=== PATIENT | female | born 1990 | race Caucasian/White ===

== ENCOUNTER 2017-05-15 10:58 | Emergency (ER) | payer MEDICARE, OTHER ==
[2017-05-15 12:04] LABS: ADD MAN DIFF? NO
[2017-05-15 12:09] LABS: BASO % 0 % (0-3); EOS # 0.1 x10^3/uL (0.0-0.7); EOS % 1 % (0-3); HEMATOCRIT 37.6 % (36.0-47.0); HEMOGLOBIN 12.5 g/dL (12.0-15.5); LYMPH # 2.3 x10^3/uL (1.0-4.8); LYMPH % 21 % (24-48); MEAN CORPUSCULAR HEMOGLOBIN 30 pg (25-35); MEAN CORPUSCULAR HGB CONC 33 g/dL (31-37); MEAN CORPUSCULAR VOLUME 90 fL (79-100); MONO % 9 % (0-9); NEUT # 7.4 x10^3uL (1.8-7.7); NEUT % 69 % (31-73); PLATELET COUNT 264 x10^3/uL (140-400); RED BLOOD COUNT 4.17 x10^6/uL (3.50-5.40); RED CELL DISTRIBUTION WIDTH 14.1 % (11.5-14.5); WHITE BLOOD COUNT 10.7 x10^3/uL (4.0-11.0)
[2017-05-15 12:14] LABS: ANION GAP 5 (6-14); BLOOD UREA NITROGEN 14 mg/dL (7-20); BUN/CREATININE RATIO 20 (6-20); CALCIUM 8.8 mg/dL (8.5-10.1); CARBON DIOXIDE 33 mmol/L (21-32); CHLORIDE 105 mmol/L (98-107); CREATININE 0.7 mg/dL (0.6-1.0); GFR 101.1; GLUCOSE 91 mg/dL (70-99); POTASSIUM 3.7 mmol/L (3.5-5.1); SODIUM 143 mmol/L (136-145)
[2017-05-15 12:19] LABS: ALBUMIN 3.3 g/dL (3.4-5.0); ALBUMIN/GLOBULIN RATIO 0.8 (1.0-1.7); ALK PHOS 90 U/L (46-116); ALT (SGPT) 18 U/L (14-59); AST (SGOT) 14 U/L (15-37); TOTAL BILIRUBIN 0.5 mg/dL (0.2-1.0); TOTAL PROTEIN 7.5 g/dL (6.4-8.2)
[2017-05-15] MEDS ORDERED: CONTRAST GIVEN MC (12:30)
[2017-05-15] MEDS: IOHEXOL 300 MG/ML 100ML VIAL. IV (12:51)
[2017-05-15] MEDS: HYDROcodone/APAP 5/325MG 1 TAB TABLET PO (13:09)
[2017-05-15] MEDS: DIPHTH,PERTUSS(ACELL),TET TOX 0.5 ML DISP.SYRIN. VAX IM (13:41)
[2017-05-15 14:54] LABS: URINE HCG POC HCG NEGATIVE (Negative)
== END 2017-05-15 13:43 | disposition home or self-care (01) ==
LOC: ER 10:58
DX: K12.2 Cellulitis and abscess of mouth (principal)
CPT/HCPCS: 36415; 70491; 80053; 81025; 85025; 90471; 90715; 99285-25; Q9967

== ENCOUNTER 2018-10-31 10:11 | Emergency (ER) | payer OTHER, MEDICAID ==
[~2018-10-31] VITALS: Ht 170.2 cm; Wt 115.7 kg
[2018-10-31] MEDS ORDERED: IV NORMAL SALINE 1000ML BAG 1,000 ML IV ONE (10:30)
[2018-10-31] MEDS ORDERED: ONDANSETRON PF 4 MG/2 ML VIAL. IV ONE (10:30)
--- NOTE | 2018-10-31 10:39 | PHYS DOC ---
Past Medical History Past Medical History: No Pertinent History Past Surgical History: No Surgical History Alcohol Use: None Drug Use: None Adult General Chief Complaint Chief Complaint: NAUSEA/VOMITING/DIARRHA HPI HPI Patient is a 28 year old female that presents with nausea and vomiting since October 17. The patient states that she's been having issues keeping food down. The patient states that she has not had a period for at least 2 months. The patient thinks that her last period was the beginning of August. The patient is a poor historian. Denies any pain at this time. No interventions prior to arrival. The patient states she was using some kind of unknown control patch. The patient states she did know how to use it and so she stopped using it. [id number] Review of Systems Review of Systems Constitutional: Denies fever or chills [] Eyes: Denies change in visual acuity, redness, or eye pain [] HENT: Reports nasal congestion denies sore throat [] Respiratory: Reports cough denies shortness of breath [] Cardiovascular: No additional information not addressed in HPI [] GI: Reports intermittent abdominal cramping, reports nausea, vomiting, Denies bloody stools or diarrhea [] : Denies dysuria or hematuria [] Musculoskeletal: Denies back pain or joint pain [] Integument: Denies rash or skin lesions [] Neurologic: Denies headache, focal weakness or sensory changes [] Endocrine: Denies polyuria or polydipsia [] Complete systems were reviewed and found to be within normal limits, except as documented in this note. Current Medications Current Medications Current Medications Medications (Trade) Dose Ordered [facility] Start Time Stop Time Status Last Admin Dose Admin Ondansetron HCl (Zofran) 4 mg 1X ONCE 10/31/18 10:30 10/31/18 10:34 DC 10/31/18 10:59 4 MG Sodium Chloride 1,000 ml @ 1,000 mls/hr 1X ONCE 10/31/18 10:30 10/31/18 11:29 DC 10/31/18 10:59 1,000 MLS/HR Allergies Allergies Allergies Coded Allergies Type Severity Reaction Last Updated Verified No Known Drug Allergies 07/19/13 No Physical Exam Physical Exam Constitutional: Well developed, well nourished, no acute distress, non-toxic appearance. [] HENT: Normocephalic, atraumatic, bilateral external ears normal, oropharynx moist, no oral exudates, nose normal. [] Eyes: PERRLA, EOMI, conjunctiva normal, no discharge. [] Neck: Normal range of motion, no tenderness, supple, no stridor. [] Cardiovascular:Heart rate regular rhythm, no murmur [] Lungs & Thorax: Bilateral breath sounds clear to auscultation [] Abdomen: Bowel sounds normal, soft, no tenderness, no masses, no pulsatile masses. [] Skin: Warm, dry, no erythema, no rash. [] Back: No tenderness, no CVA tenderness. [] Extremities: No tenderness, no cyanosis, no clubbing, ROM intact, no edema. [] Neurologic: Alert and oriented X 3, normal motor function, normal sensory function, no focal deficits noted. [] Psychologic: Affect normal, judgement normal, mood normal. [] Current Patient Data Vital Signs Vital Signs Date Time Temp Pulse Resp B/P (MAP) Pulse Ox O2 Delivery O2 Flow Rate FiO2 10/31/18 10:15 98.2 80 16 135/71 (92) 97 Room Air 98.2 Lab Values Laboratory Tests Test 10/31/18 10:18 10/31/18 10:29 10/31/18 10:45 Urine Collection Type Unknown Urine Color Elina Urine Clarity Cloudy Urine pH 6.0 Urine Specific [place] 1.025 Urine Protein >=300 mg/dL (NEG-TRACE) Urine Glucose (UA) Negative mg/dL (NEG) Urine Ketones (Stick) Trace mg/dL (NEG) Urine Blood Negative (NEG) Urine Nitrite Negative (NEG) Urine Bilirubin Small (NEG) Urine Urobilinogen Dipstick 0.2 mg/dL (0.2 mg/dL) Urine Leukocyte Esterase Small (NEG) Urine RBC 0 /HPF (0-2) Urine WBC 5-10 /HPF (0-4) Urine Squamous Epithelial Cells Many /LPF Urine Amorphous Sediment Present /HPF Urine Bacteria Few /HPF (0-FEW) POC Urine HCG, Qualitative Hcg positive (Negative) White Blood Count 6.8 x10^3/uL (4.0-11.0) Red Blood Count 4.69 x10^6/uL (3.50-5.40) Hemoglobin 13.5 g/dL (12.0-15.5) Hematocrit 41.1 % (36.0-47.0) Mean Corpuscular Volume 88 fL (79-100) Mean Corpuscular Hemoglobin 29 pg (25-35) Mean Corpuscular Hemoglobin Concent 33 g/dL (31-37) Red Cell Distribution Width 14.8 % (11.5-14.5) H Platelet Count 217 x10^3/uL (140-400) Neutrophils (%) (Auto) 74 % (31-73) H Lymphocytes (%) (Auto) 17 % (24-48) L Monocytes (%) (Auto) 8 % (0-9) Eosinophils (%) (Auto) 1 % (0-3) Basophils (%) (Auto) 0 % (0-3) Neutrophils # (Auto) 5.0 x10^3/uL (1.8-7.7) Lymphocytes # (Auto) 1.2 x10^3/uL (1.0-4.8) Monocytes # (Auto) 0.5 x10^3/uL (0.0-1.1) Eosinophils # (Auto) 0.0 x10^3/uL (0.0-0.7) Basophils # (Auto) 0.0 x10^3/uL (0.0-0.2) Maternal Serum HCG Beta Subunit 347412 mIU/mL (0-5) H Sodium Level 139 mmol/L (136-145) Potassium Level 3.7 mmol/L (3.5-5.1) Chloride Level 104 mmol/L (98-107) Carbon Dioxide Level 25 mmol/L (21-32) Anion Gap 10 (6-14) Blood Urea Nitrogen 6 mg/dL (7-20) L Creatinine 0.6 mg/dL (0.6-1.0) Estimated GFR (Cockcroft-Gault) 119.9 BUN/Creatinine Ratio 10 (6-20) Glucose Level 86 mg/dL (70-99) Calcium Level 8.8 mg/dL (8.5-10.1) Total Bilirubin 0.7 mg/dL (0.2-1.0) Aspartate Amino Transferase (AST) 18 U/L (15-37) Alanine Aminotransferase (ALT) 28 U/L (14-59) Alkaline Phosphatase 81 U/L (46-116) Total Protein 7.0 g/dL (6.4-8.2) Albumin 3.4 g/dL (3.4-5.0) Albumin/Globulin Ratio 0.9 (1.0-1.7) L Laboratory Tests 10/31/18 10:45 Laboratory Tests 10/31/18 10:45 EKG EKG [] Radiology/Procedures Radiology/Procedures []PATIENT: HALEY WEINSTEIN MACCOUNT: [id number]#: [id number] : 1990 LOCATION: ER AGE: 28 SEX: F EXAM STATUS: REG ER ORD. PHYSICIAN: HAN HENRY APRN REASON: abd cramping, nausea PROCEDURE: OB < 14 WKS First trimester ultrasound less than 14 weeks: Clinical indications: . Abdominal cramping. Nausea. Findings: Transabdominal study: Number of fetuses: Single. Average crown-rump length: 2.78 cm which corresponds to an approximate gestational age of 9 weeks and 4 days +/- 6 days. EDC is June 01, 2019 Sac shape and amniotic fluid volume: Normal. heart rate: 168 beats per minute Placenta location: Indeterminate due to the early stage of gestation. Cervical length: 3.6 cm. Extrachorionic hemorrhage: None. Uterus: No uterine fibroids are seen. Maternal ovaries: Right ovary: 4.1 cm x 2.0 cm x 2.6 cm. Normal. Left ovary: 4.0 cm x 1.9 cm x 3.0 cm. Normal. Adnexa: no adnexal masses are seen. Free fluid: None. Impression: Single intrauterine gestation with approximate gestational age of 9 weeks and 4 days with an EDC of June 01, 2019. heart rate is 168 beats per minute. Electronically signed by: Parag Oakley MD (10/31/2018 11:42 AM) [facility] DICTATED and SIGNED BY: PARAG OAKLEY MD DATE: 10/31/18 114 Course & Med Decision Making Course & Med Decision Making Pertinent Labs and Imaging studies reviewed. (See chart for details) Will obtain UA, test,labs, and get an ultrasound. Will also give supportive care. test is positive. Labs are unremarkable with the exception of urine. Urine shows small leukocytes and protein >300. BP is 135/71. Will have follow up with OB. Will place on Keflex. Ultrasound is unremarkable though it has an estimated age of 9 weeks 4 days. Dragon Disclaimer Dragon Disclaimer This electronic medical record was generated, in whole or in part, using a voice recognition dictation system. Departure Departure Impression: Primary Impression: Nausea and vomiting during Additional Impression: Urinary tract infection affecting Disposition: HOME, SELF-CARE Condition: STABLE Referrals: HAN BUNCH MD (PCP) ADALID GARCIA Jr, MD Patient Instructions: Nausea and Vomiting Additional Instructions: Thank you for visiting [facility]. We appreciate you trusting us with your care. If any additional problems come up don't hesitate to return to visit us. Please follow up with your primary care provider so they can plan additional care if needed and know about the problem that you had. If symptoms worsen come back to the Emergency Department. Any concerning symptoms that start such as chest pain, shortness of air, weakness or numbness on one side of the body, running high fevers or any other concerning symptoms return to the ER. Please follow up with OB for OB care. You have been prescribed an antibiotic today to help fight your infection. Please take all of the antibiotic as directed. If after 48 hours the infection is not improving, please return for more care. If the infection worsens, return to ER for additional care. Please fill your medications at any pharmacy and follow the prescription instructions. Scripts Cephalexin (KEFLEX) 500 Mg Capsule 1 CAP PO BID for 7 Days, #14 CAP Prov: HAN HENRY APRN 10/31/18 Ondansetron (ONDANSETRON ODT) 4 Mg Tab.rapdis 1 TAB PO PRN Q6-8HRS PRN for NAUSEA, #16 TAB Prov: HAN HENRY APRN 10/31/18 Problem Qualifiers HAN HENRY APRN Oct 31, 2018 10:39
[2018-10-31 10:52] LABS: BILIRUBIN,URINE SMALL (NEG); CLARITY,URINE CLOUDY; COLOR,URINE AMBER; NITRITE,URINE NEGATIVE (NEG); PROTEIN,URINE >=300 mg/dL (NEG-TRACE); UROBILINOGEN,URINE 0.2 mg/dL (0.2 mg/dL)
[2018-10-31 11:06] LABS: BASO % 0 % (0-3); EOS % 1 % (0-3); HEMATOCRIT 41.1 % (36.0-47.0); HEMOGLOBIN 13.5 g/dL (12.0-15.5); LYMPH # 1.2 x10^3/uL (1.0-4.8); LYMPH % 17 % (24-48); MEAN CORPUSCULAR HEMOGLOBIN 29 pg (25-35); MEAN CORPUSCULAR HGB CONC 33 g/dL (31-37); MEAN CORPUSCULAR VOLUME 88 fL (79-100); MONO # 0.5 x10^3/uL (0.0-1.1); MONO % 8 % (0-9); NEUT % 74 % (31-73); PLATELET COUNT 217 x10^3/uL (140-400); RED BLOOD COUNT 4.69 x10^6/uL (3.50-5.40); RED CELL DISTRIBUTION WIDTH 14.8 % (11.5-14.5); WHITE BLOOD COUNT 6.8 x10^3/uL (4.0-11.0)
[2018-10-31 11:14] LABS: BACTERIA,URINE FEW /HPF (0-FEW); RBC,URINE 0 /HPF (0-2); SQUAMOUS EPITHELIAL CELL,UR MANY /LPF
[2018-10-31 11:15] LABS: AMORPHOUS SEDIMENT,UR PRESENT /HPF
[2018-10-31 11:16] LABS: CALCIUM 8.8 mg/dL (8.5-10.1); CREATININE 0.6 mg/dL (0.6-1.0); GFR 119.9; POTASSIUM 3.7 mmol/L (3.5-5.1)
[2018-10-31 11:23] LABS: ALBUMIN 3.4 g/dL (3.4-5.0); ALBUMIN/GLOBULIN RATIO 0.9 (1.0-1.7); TOTAL BILIRUBIN 0.7 mg/dL (0.2-1.0)
--- NOTE | 2018-10-31 11:44 | RAD ---
First trimester ultrasound less than 14 weeks: Clinical indications: . Abdominal cramping. Nausea. Findings: Transabdominal study: Number of fetuses: Single. Average crown-rump length: 2.78 cm which corresponds to an approximate gestational age of 9 weeks and 4 days +/- 6 days. EDC is June 01, 2019 Sac shape and amniotic fluid volume: Normal. heart rate: 168 beats per minute Placenta location: Indeterminate due to the early stage of gestation. Cervical length: 3.6 cm. Extrachorionic hemorrhage: None. Uterus: No uterine fibroids are seen. Maternal ovaries: Right ovary: 4.1 cm x 2.0 cm x 2.6 cm. Normal. Left ovary: 4.0 cm x 1.9 cm x 3.0 cm. Normal. Adnexa: no adnexal masses are seen. Free fluid: None. Impression: Single intrauterine gestation with approximate gestational age of 9 weeks and 4 days with an EDC of June 01, 2019. heart rate is 168 beats per minute. Electronically signed by: Art Oakley MD (10/31/2018 11:42 AM) [facility]
[2018-10-31] MEDS ORDERED: ONDA4TAB12 PO (11:53)
[2018-10-31] MEDS ORDERED: CEPH-264 PO (11:53)
[2018-10-31 12:01] VITALS: BP 124/65
== END 2018-10-31 12:17 | disposition home or self-care (01) ==
LOC: ER 10:11
DX: O21.8 Other vomiting complicating pregnancy (principal); O23.41 Unspecified infection of urinary tract in pregnancy, first trimester; Z3A.09 9 weeks gestation of pregnancy
CPT/HCPCS: 36415; 76801; 80053; 81001; 81025; 84702; 85025; 86900; 86901; 87086; 96361; 96374; 99285; J2405; J7030

== ENCOUNTER 2019-05-26 18:18 | Inpatient (IN) | payer OTHER, MEDICAID ==
[~2019-05-26] VITALS: Ht 170.2 cm; Wt 124.3 kg
[~2019-05-26 18:18] MED LIST: CEPH-264 PO; ONDA4TAB12 PO
[2019-05-26] MEDS ORDERED: LIDOCAINE 1% PF 30 ML VIAL. INJ PRN (18:30)
[2019-05-26] MEDS ORDERED: DINOPROSTONE 10 MG SUPP.VAG VG ONE (18:30)
[2019-05-26] MEDS ORDERED: ONDANSETRON PF 4 MG/2 ML VIAL. IV PRN (18:30)
[2019-05-26] MEDS ORDERED: TERBUTALINE 1 MG/ML VIAL. SQ PRN (18:30)
[2019-05-26] MEDS ORDERED: 0.9 % SODIUM CHLORIDE 10 ML DISP.SYRIN. IV PRN (18:30)
[2019-05-26] MEDS ORDERED: BUTORPHANOL 2 MG/ML VIAL. IV PRN ×2 (18:30)
[2019-05-26] MEDS ORDERED: fentaNYL PF VIAL 100 MCG/2 ML VIAL IV PRN (18:30)
[2019-05-26] MEDS ORDERED: ZOLPIDEM 5 MG TABLET. PO PRN (18:30)
[2019-05-26] MEDS ORDERED: OXYTOCIN 30 UNIT/500 ML PREMIX 500 ML IV PRN ×2 (18:30)
[2019-05-26 18:53] VITALS: BP 143/86
[2019-05-26 18:53] LABS: BILIRUBIN,URINE NEGATIVE (NEG); CLARITY,URINE CLEAR; COLOR,URINE YELLOW; NITRITE,URINE NEGATIVE (NEG); PROTEIN,URINE NEGATIVE (NEG-TRACE)
[2019-05-26] MEDS ORDERED: PNV1TABL25 PO (18:54)
[2019-05-26] MEDS: IV RINGERS,LACTATED 1000ML 1,000 ML IV SCH ×3 (18:56→22:55)
[2019-05-26] MEDS ORDERED: AMPICILLIN SODIUM 2 GM in IV NORMAL SALINE 100ML 100 ML IV ONE (19:00)
[2019-05-26 19:02] LABS: BACTERIA,URINE 0 /HPF (0-FEW); RBC,URINE 0 /HPF (0-2); SQUAMOUS EPITHELIAL CELL,UR MOD /LPF; WBC,URINE OCC /HPF (0-4)
[2019-05-26 19:12] LABS: BASO % 0 % (0-3); EOS # 0.1 x10^3/uL (0.0-0.7); EOS % 1 % (0-3); HEMATOCRIT 38.3 % (36.0-47.0); HEMOGLOBIN 12.9 g/dL (12.0-15.5); LYMPH # 1.8 x10^3/uL (1.0-4.8); LYMPH % 21 % (24-48); MEAN CORPUSCULAR HEMOGLOBIN 31 pg (25-35); MEAN CORPUSCULAR HGB CONC 34 g/dL (31-37); MEAN CORPUSCULAR VOLUME 91 fL (79-100); MONO # 0.5 x10^3/uL (0.0-1.1); MONO % 6 % (0-9); NEUT # 6.4 x10^3/uL (1.8-7.7); NEUT % 72 % (31-73); PLATELET COUNT 195 x10^3/uL (140-400); RED BLOOD COUNT 4.21 x10^6/uL (3.50-5.40); RED CELL DISTRIBUTION WIDTH 14.4 % (11.5-14.5); WHITE BLOOD COUNT 8.8 x10^3/uL (4.0-11.0)
[2019-05-26] MEDS: AMPICILLIN SODIUM 1 GM in IV NORMAL SALINE 50ML 50 ML IV SCH (23:55)
[2019-05-27] MEDS: AMPICILLIN SODIUM 1 GM in IV NORMAL SALINE 50ML 50 ML IV SCH ×7 (03:30→16:30)
[2019-05-27] MEDS: IV RINGERS,LACTATED 1000ML 1,000 ML IV SCH (07:50)
[2019-05-27] MEDS ORDERED: TDaP (Adacel) per PROTOCOL. MC PRN (13:00)
[2019-05-27] MEDS ORDERED: MAGNESIUM HYDROXIDE 2,400 MG/30 ML ORAL.SUSP. PO PRN (13:00)
[2019-05-27] MEDS ORDERED: PHENYLEPH/MINERAL OIL/PETROLAT RECTAL OINTMENT TUBE. RC PRN (13:00)
[2019-05-27] MEDS ORDERED: ZOLPIDEM 5 MG TABLET. PO PRN (13:00)
[2019-05-27] MEDS ORDERED: MMR per PROTOCOL. MC PRN (13:00)
[2019-05-27] MEDS ORDERED: SIMETHICONE 80 MG TAB.CHEW PO PRN (13:00)
[2019-05-27] MEDS ORDERED: BENZOCAINE 20% TOPICAL AEROSOL SPRAY 57GM CAN. TP PRN (13:00)
[2019-05-27] MEDS ORDERED: HYDROCORTISONE 1% TOPICAL OINTMENT 30GM TUBE. TP PRN (13:00)
[2019-05-27] MEDS ORDERED: ACETAMINOPHEN 325 MG TABLET. PO PRN (13:00)
[2019-05-27] MEDS ORDERED: HYDROcodone/APAP 5/325MG 1 TAB TABLET PO PRN ×2 (13:00)
[2019-05-27] MEDS ORDERED: MAG HYDROX/ALUMINUM HYD/SIMETH 30 ML ORAL.SUSP PO PRN (13:00)
[2019-05-27] MEDS ORDERED: 0.9 % SODIUM CHLORIDE 10 ML DISP.SYRIN. IV PRN (13:00)
[2019-05-27] MEDS ORDERED: OXYTOCIN 30 UNIT/500 ML PREMIX 500 ML IV PRN (13:00)
[2019-05-27] MEDS ORDERED: diphenhydrAMINE HCL 25 MG CAPSULE PO PRN (13:00)
--- NOTE | 2019-05-27 13:00 | PDOC1 ---
OB - History Hx of Present Ultrasounds: Normal mid trimester US Obstetrical Complications: Other (GBS +) Medical Complications: Other (MR mild) Past Family/Social History * Past Medical, Surgical, Family and Obstetric Histories reviewed from chart. Blood Type: O+ Rubella: Immune RPR/VDRL: Negative GBS Status: Positive HBsAG: Negative OB - Chief Complaint & HPI Date of Admission: Date of Admission: May 26, 2019 at 18:18 Chief Complaint/History : 4 Para: 3 Reason for admission: induction of labor Indication for induction: other (Rapid deliveries) Admission Nurse Assessment Rev: Yes OB - Admission Exam Physical Exam Vitals: VS - Last 72 Hours, by Label Date Time Temp Pulse Resp B/P (MAP) Pulse Ox O2 Delivery O2 Flow Rate FiO2 05/27/19 10:29 16 05/26/19 18:53 98.0 83 20 143/86 (105) Room Air 98.0 HEENT: Normal, Nasal Mucosa Normal, Oropharynx Normal, Moist Membranes, Fontanelles Normal Lungs: Clear, Equal Abdomen: Gravid Extremities: Normal Pulses, No tenderness or swelling Reflexes: Normal Cervical Dilatation: 2cm Effacement: 50% Station: -3 Membranes: Intact Amniotic Fluid: Clear Heart Rate: Normal Accelerations: Accelerations Present Decelerations: No decelerations Short Term Variability: Present Half-Way Variability: Moderate Contractions on Admission: 6-10 Minutes Apart Intensity: HAN Fitch MD May 27, 2019 13:00
--- NOTE | 2019-05-27 13:20 | OP ---
DATE OF SURGERY: 05/27/2019 DELIVERY NOTE CLINICAL COURSE: This patient is a G4, P3 female with risk of GBS positive status, otherwise with minimal risk except for mild mental handicap in mother. She was scheduled for induction due to rapid labors with EDC of 05/29/2019 making her 39 and 5. She underwent Cervidil placement for induction, but had hyperstim reaction and this was discontinued immediately. Deceleration was noted early in labor course, but this resolved completely and the patient had reassuring strip after Cervidil was removed and contraction pattern became more normal. She had a light contraction pattern to the evening and then proceeded into labor, had artificial rupture of membranes with clear fluid noted dilating cervix to approximately 5 cm. She had minimal progression and Pitocin augmentation was added and the patient progressed rapidly to complete, delivering a viable male with Apgars of 8, 9 and 9 over a midline laceration and a right periurethral laceration. head was delivered and suctioned and subsequently the body was delivered. was re-suctioned, had spontaneous cry and no gross abnormalities were noted. Cord was clamped after 30-second placental resuscitation and was handed off. Placenta was delivered with 3-vessel cord noted and was delivered intact. Uterus was firm with Pitocin and palpation. There was good hemostasis. A midline first-degree laceration was sutured with 3-0 chromic with a running locking fashion and right-sided periurethral was sutured in a running fashion. Perineum was intact. Cervix was inspected and vaginal vault was inspected without lacerations or bleeding. There was approximately 300 mL blood loss. There was no anesthesia at this delivery. Mother did receive Stadol approximately 2 hours prior to delivery. Mother and baby to recovery in stable condition. HAN BUNCH MD DR: LORETTA/edgar JOB#: [id number] / [id number]
[2019-05-27] MEDS ORDERED: IBUPROFEN 400 MG TABLET. PO SCH (14:00)
[2019-05-27 15:30] VITALS: BP 124/76
[2019-05-27] MEDS: IBUPROFEN 400 MG TABLET. PO PRN (15:33)
[2019-05-27 16:35] VITALS: BP 120/75
[2019-05-27 20:17] VITALS: BP 129/79
[2019-05-27 23:45] VITALS: BP 123/70
[2019-05-28] MEDS: IBUPROFEN 400 MG TABLET. PO PRN ×3 (01:03→18:53)
[2019-05-28 05:34] VITALS: BP 120/80
[2019-05-28 06:29] LABS: BASO % 0 % (0-3); EOS # 0.1 x10^3/uL (0.0-0.7); EOS % 1 % (0-3); HEMOGLOBIN 11.8 g/dL (12.0-15.5); LYMPH # 2.4 x10^3/uL (1.0-4.8); LYMPH % 24 % (24-48); MEAN CORPUSCULAR HEMOGLOBIN 31 pg (25-35); MEAN CORPUSCULAR HGB CONC 34 g/dL (31-37); MEAN CORPUSCULAR VOLUME 90 fL (79-100); MONO # 0.7 x10^3/uL (0.0-1.1); MONO % 7 % (0-9); NEUT # 6.8 x10^3/uL (1.8-7.7); NEUT % 68 % (31-73); PLATELET COUNT 159 x10^3/uL (140-400); RED BLOOD COUNT 3.87 x10^6/uL (3.50-5.40); RED CELL DISTRIBUTION WIDTH 14.6 % (11.5-14.5)
[2019-05-28] MEDS ORDERED: FERROUS SULFATE 325 MG TABLET. PO SCH (08:00)
[2019-05-28] MEDS: MULTIVITAMIN with MINERAL TABLET. PO SCH (08:35)
[2019-05-28 10:20] VITALS: BP 126/85
--- NOTE | 2019-05-28 12:47 | PDOC ---
PROGRESS NOTES Subjective Subjective Doing well decreased bleeding and loci tolerating diet and ambulating good pain control. Objective Objective Vital Signs Date Time Temp Pulse Resp B/P (MAP) Pulse Ox O2 Delivery O2 Flow Rate FiO2 05/28/19 10:20 97.8 76 17 126/85 (99) 96 Room Air 97.8 Intake and Output 05/28/19 07:00 Intake Total 720 ml Balance 720 ml Intake Oral 720 ml # Voids 3 Physical Exam Abdomen: Normal bowel sounds Heart: Regular rate Extremities: No edema General: Alert Lungs: Clear to auscultation MUSCULOSKELETAL: Other (neg estefania sign) Assessment Assessment PPD#1 Plan Plan of Care Routine care Comment Review of Relevant I have reviewed the following items ace (where applicable) has been applied. Labs Laboratory Tests Test 05/26/19 18:39 05/26/19 18:54 05/28/19 06:08 Urine Collection Type Unknown Urine Color Yellow Urine Clarity Clear Urine pH 6.0 (<5.0-8.0) Urine Specific [place] 1.025 (1.000-1.030) Urine Protein Negative mg/dL (NEG-TRACE) Urine Glucose (UA) Negative mg/dL (NEG) Urine Ketones (Stick) Negative mg/dL (NEG) Urine Blood Negative (NEG) Urine Nitrite Negative (NEG) Urine Bilirubin Negative (NEG) Urine Urobilinogen Dipstick 1.0 mg/dL (0.2 mg/dL) Urine Leukocyte Esterase Negative (NEG) Urine RBC 0 /HPF (0-2) Urine WBC Occ /HPF (0-4) Urine Squamous Epithelial Cells Mod /LPF Urine Bacteria 0 /HPF (0-FEW) Urine Mucus Mod /LPF White Blood Count 8.8 x10^3/uL (4.0-11.0) 10.0 x10^3/uL (4.0-11.0) Red Blood Count 4.21 x10^6/uL (3.50-5.40) 3.87 x10^6/uL (3.50-5.40) Hemoglobin 12.9 g/dL (12.0-15.5) 11.8 g/dL (12.0-15.5) Hematocrit 38.3 % (36.0-47.0) 35.0 % (36.0-47.0) Mean Corpuscular Volume 91 fL (79-100) 90 fL (79-100) Mean Corpuscular Hemoglobin 31 pg (25-35) 31 pg (25-35) Mean Corpuscular Hemoglobin Concent 34 g/dL (31-37) 34 g/dL (31-37) Red Cell Distribution Width 14.4 % (11.5-14.5) 14.6 % (11.5-14.5) Platelet Count 195 x10^3/uL (140-400) 159 x10^3/uL (140-400) Neutrophils (%) (Auto) 72 % (31-73) 68 % (31-73) Lymphocytes (%) (Auto) 21 % (24-48) 24 % (24-48) Monocytes (%) (Auto) 6 % (0-9) 7 % (0-9) Eosinophils (%) (Auto) 1 % (0-3) 1 % (0-3) Basophils (%) (Auto) 0 % (0-3) 0 % (0-3) Neutrophils # (Auto) 6.4 x10^3/uL (1.8-7.7) 6.8 x10^3/uL (1.8-7.7) Lymphocytes # (Auto) 1.8 x10^3/uL (1.0-4.8) 2.4 x10^3/uL (1.0-4.8) Monocytes # (Auto) 0.5 x10^3/uL (0.0-1.1) 0.7 x10^3/uL (0.0-1.1) Eosinophils # (Auto) 0.1 x10^3/uL (0.0-0.7) 0.1 x10^3/uL (0.0-0.7) Basophils # (Auto) 0.0 x10^3/uL (0.0-0.2) 0.0 x10^3/uL (0.0-0.2) Treponema pallidum Antibody Nonreactive (Nonreactive) Laboratory Tests Test 05/28/19 06:08 White Blood Count 10.0 x10^3/uL (4.0-11.0) Red Blood Count 3.87 x10^6/uL (3.50-5.40) Hemoglobin 11.8 g/dL (12.0-15.5) Hematocrit 35.0 % (36.0-47.0) Mean Corpuscular Volume 90 fL (79-100) Mean Corpuscular Hemoglobin 31 pg (25-35) Mean Corpuscular Hemoglobin Concent 34 g/dL (31-37) Red Cell Distribution Width 14.6 % (11.5-14.5) Platelet Count 159 x10^3/uL (140-400) Neutrophils (%) (Auto) 68 % (31-73) Lymphocytes (%) (Auto) 24 % (24-48) Monocytes (%) (Auto) 7 % (0-9) Eosinophils (%) (Auto) 1 % (0-3) Basophils (%) (Auto) 0 % (0-3) Neutrophils # (Auto) 6.8 x10^3/uL (1.8-7.7) Lymphocytes # (Auto) 2.4 x10^3/uL (1.0-4.8) Monocytes # (Auto) 0.7 x10^3/uL (0.0-1.1) Eosinophils # (Auto) 0.1 x10^3/uL (0.0-0.7) Basophils # (Auto) 0.0 x10^3/uL (0.0-0.2) Medications Current Medications Sodium Chloride (Normal Saline Flush) 3 ml QSHIFT PRN IV AFTER MEDS AND BLOOD DRAWS; Start 05/26/19 at 18:30; Stop 05/28/19 at 05:41; Status DC Ringer's Solution 1,000 ml @ 125 mls/hr Q8H IV Last administered on 05/27/19at 07:50; Start 05/26/19 at 18:22; Stop 05/28/19 at 05:41; Status DC Butorphanol Tartrate (Stadol) 1 mg PRN Q1HR PRN IV mild to moderate labor pain; Start 05/26/19 at 18:30; Stop 05/28/19 at 05:41; Status DC Butorphanol Tartrate (Stadol) 2 mg PRN Q1HR PRN IV Severe labor pain Last administered on 05/27/19at 10:29; Start 05/26/19 at 18:30; Stop 05/28/19 at 05:41; Status DC Fentanyl Citrate (Fentanyl 2ml Vial) 100 mcg PRN Q30MIN PRN IV Severe pain; Start 05/26/19 at 18:30; Stop 05/28/19 at 05:41; Status DC Ondansetron HCl (Zofran) 4 mg PRN Q4HRS PRN IV NAUSEA/VOMITING; Start 05/26/19 at 18:30; Stop 05/28/19 at 05:41; Status DC Zolpidem Tartrate (Ambien) 5 mg PRN QHS PRN PO INSOMNIA; Start 05/26/19 at 18:30; Status Cancel Terbutaline Sulfate (Brethine) 0.25 mg 1X PRN PRN SQ SEE COMMENTS; Start 05/26/19 at 18:30; Stop 05/27/19 at 18:29; Status DC Lidocaine HCl (Xylocaine 1% Pf 30ml Vial) 30 ml 1X PRN PRN INJ SEE COMMENTS Last administered on 05/27/19at 12:39; Start 05/26/19 at 18:30; Stop 05/28/19 at 05:41; Status DC Ampicillin Sodium 2 gm/Sodium Chloride 100 ml @ 200 mls/hr 1X ONCE IV Last administered on 05/26/19at 19:27; Start 05/26/19 at 19:00; Stop 05/26/19 at 19:29; Status DC Ampicillin Sodium 1 gm/Sodium Chloride 50 ml @ 100 mls/hr Q4H IV Last administered on 05/27/19at 11:38; Start 05/26/19 at 12:30; Stop 05/28/19 at 05:41; Status DC Oxytocin/Sodium Chloride 500 ml @ 0 mls/hr CONT PRN IV SEE I/O RECORD Last administered on 05/27/19at 11:20; Start 05/26/19 at 18:30; Stop 05/28/19 at 05:41; Status DC Oxytocin/Sodium Chloride 500 ml @ 0 mls/hr CONT PRN PRN IV Post delivery bleeding; Start 05/26/19 at 18:30 Ibuprofen (Motrin) 800 mg PRN Q6HRS PRN PO INFLAMMATION Last administered on 02/05at 08:36; Start 05/26/19 at 18:30 Dinoprostone (Cervidil) 10 mg 1X ONCE VG Last administered on 05/26/19at 19:27; Start 05/26/19 at 18:30; Stop 05/26/19 at 18:42; Status DC Sodium Chloride (Normal Saline Flush) 10 ml QSHIFT PRN IV AFTER MEDS AND BLOOD DRAWS; Start 05/27/19 at 13:00; Stop 05/28/19 at 05:41; Status DC Oxytocin/Sodium Chloride 500 ml @ 62.5 mls/hr CONT PRN IV SEE I/O RECORD; Start 05/27/19 at 13:00; Stop 05/27/19 at 20:59; Status DC Acetaminophen (Tylenol) 650 mg PRN Q6HRS PRN PO MILD PAIN / TEMP; Start 05/27/19 at 13:00 Ibuprofen (Motrin) 800 mg Q8HRS PO ; Start 05/27/19 at 14:00 Magnesium Hydroxide (Milk Of Magnesia) 2,400 mg PRN DAILY PRN PO CONSTIPATION; Start 05/27/19 at 13:00 Al Hydroxide/Mg Hydroxide (Mylanta Plus Xs) 30 ml PRN Q4HRS PRN PO HEARTBURN / GAS; Start 05/27/19 at 13:00 Simethicone (Gas-X) 80 mg PRN AFTMEALHC PRN PO GAS / BLOATING Last administered on 05/28/19at 01:03; Start 05/27/19 at 13:00 Diphenhydramine HCl (Benadryl) 25 mg PRN Q6HRS PRN PO ITCHING; Start 05/27/19 at 13:00 Benzocaine (Americaine) 1 spray PRN QID PRN TP TOPICAL PAIN Last administered on 05/27/19at 15:34; Start 05/27/19 at 13:00 Phenyleph/Shark Oil/Min Oil/Petrol (Preparation H) 1 juan PRN QID PRN RC RECTAL PAIN; Start 05/27/19 at 13:00 Hydrocortisone (Cortaid) 1 juan PRN QID PRN TP PERINEAL PAIN; Start 05/27/19 at 13:00 Ferrous Sulfate (Feosol) 325 mg BIDWMEALS PO ; Start 05/28/19 at 08:00 Zolpidem Tartrate (Ambien) 5 mg PRN QHS PRN PO INSOMNIA, MAY REPEAT X1; Start 05/27/19 at 13:00 Info (Do NOT chart on this placeholder) 1 ea 1X PRN PRN MC SEE COMMENTS; Start 05/27/19 at 13:00 Info (Do NOT chart on this placeholder) 1 ea 1X PRN PRN MC SEE COMMENTS; Start 05/27/19 at 13:00; Stop 05/28/19 at 05:41; Status DC Multivitamins (Thera M Plus) 1 tab DAILY PO Last administered on 05/28/19at 08:35; Start 05/28/19 at 09:00 Acetaminophen/ Hydrocodone Bitart (Lortab 5/325) 1 tab PRN Q4HRS PRN PO MODERATE PAIN; Start 05/27/19 at 13:00 Acetaminophen/ Hydrocodone Bitart (Lortab 5/325) 2 tab PRN Q4HRS PRN PO SEVERE PAIN; Start 05/27/19 at 13:00 Active Scripts Active Reported Tablet (Pnv Cmb#95/Ferrous Fumarate/Fa) 1 Each Tablet 1 Tab PO DAILY 30 Days Vitals/I & O Vital Sign - Last 24 Hours 05/27/19 05/27/19 05/27/19 05/27/19 15:30 16:35 20:17 23:45 Temp 98.0 97.8 98.0 98.0 98.0 97.8 98.0 98.0 Pulse 86 72 64 Resp 20 18 16 16 B/P (MAP) 124/76 (92) 120/75 (90) 129/79 (96) 123/70 (87) Pulse Ox 99 96 O2 Delivery Room Air Room Air Room Air Room Air 05/28/19 05/28/19 05:34 10:20 Temp 97.4 97.8 97.4 97.8 Pulse 76 76 Resp 16 17 B/P (MAP) 120/80 (93) 126/85 (99) Pulse Ox 95 96 O2 Delivery Room Air Room Air Intake and Output 05/27/19 05/27/19 05/28/19 15:00 23:00 07:00 Intake Total 240 ml 480 ml Balance 240 ml 480 ml HAN BUNCH MD May 28, 2019 12:47
[2019-05-28 13:30] VITALS: BP 130/80
[2019-05-28 17:30] VITALS: BP 126/81
[2019-05-28 22:10] VITALS: BP 126/75
[2019-05-29] MEDS: IBUPROFEN 400 MG TABLET. PO PRN (01:59)
[2019-05-29 06:20] VITALS: BP 132/84
[2019-05-29] MEDS: MULTIVITAMIN with MINERAL TABLET. PO SCH (09:48)
[2019-05-29] MEDS ORDERED: IBUP-1060 PO (12:10)
[2019-05-29] MEDS ORDERED: HYDR-2761 PO (12:10)
--- NOTE | 2019-05-29 12:13 | PDOC3 ---
OB DISCHARGE SUMMARY DATE OF ADMISSION: 05/26/19 DATE OF DISCHARGE: 05/29/19 REASON FOR ADMISSION: Induction of labor DISCHARGE DIAGNOSIS: Term Delivered DISCHARGE INFORMATION: Activity (no sexual activity 6 weeks) HOSPITAL COURSE Normal HAN BUNCH MD May 29, 2019 12:13
[2019-05-29 13:05] VITALS: BP 145/93
--- NOTE | 2019-05-29 13:05 | NUR ---
Discharge instructions and follow up information given to patient and significant other. Pt verbalized understanding and denied any questions.
== END 2019-05-29 13:33 | disposition home or self-care (01) | DRG 807 ==
LOC: 3 SO LND 18:18 → 3 NORTH 05-27 15:30
PROVIDERS: ADMIT Family Medicine; ATTEND Family Medicine
PROC: 3E0P7VZ Introduction of Hormone into Female Reproductive, Via Natural or Artificial Opening (ICD-10-PCS; principal; 2019-05-27)
PROC: 10E0XZZ Delivery of Products of Conception, External Approach (ICD-10-PCS; 2019-05-27)
PROC: 10907ZC Drainage of Amniotic Fluid, Therapeutic from Products of Conception, Via Natural or Artificial Opening (ICD-10-PCS; 2019-05-27)
PROC: 0HQ9XZZ Repair Perineum Skin, External Approach (ICD-10-PCS; 2019-05-27)
PROC: 0UQMXZZ Repair Vulva, External Approach (ICD-10-PCS; 2019-05-27)
DX: O99.824 Streptococcus B carrier state complicating childbirth (principal); Z37.0 Single live birth; O70.0 First degree perineal laceration during delivery; O71.82 Other specified trauma to perineum and vulva; Z3A.39 39 weeks gestation of pregnancy
CPT/HCPCS: 36415; 81001; 85025; 86592; 86850; 86900; 86901; J0290; J0595; J2590; J3490; J7120; G0378